=== PATIENT | female | born 1980 | race Caucasian/White ===

== ENCOUNTER 2018-04-07 20:48 | Emergency (ER) | payer SELFPAY ==
--- NOTE | 2018-04-07 18:10 | PC.NURSE ---
received a call from [facility], wednesday 7 weeks with low back pain, abdominal pain with vaginal bleeding [id number], takes vitamins, bhcg 164.6 vs 125/50 hr 69 rr 18 temp 37.6 sat 99%ra. sent for u/s, r/o spontaneous .
[2018-04-07 21:10] VITALS: BP 135/60; PULSE 83; RESP 18; TEMP 37; O2SAT 99
--- NOTE | 2018-04-07 21:24 | ED.PREGNANCY ---
HPI - General Chief complaint: OB/Uterine Contractions Stated complaint: 7 wks , with bleeding and abdominal pain Time Seen by Provider: 04/07/18 21:12 Source: patient Mode of arrival: ambulatory Limitations: no limitations History of Present Illness HPI Narrative: The patient is . Her LMP was 13 Feb 2018. Gale sexually active last night and again this morning. She developed spotting. She has changed 1 pad. She was seen in clinic today, serum HCG was 164. She is here with left upper quadrant abdominal pain. She has minimal lower abdominal pain. She has ongoing spotting. She denies fever or chills. There is no vaginal pain. She denies urinary symptoms. She lives in the [facility] They have no ultrasound capability there. She came here for additional assessment. Patient : Yes Related Data Home Medications Medication Instructions Recorded Confirmed CLOTRIMAZOLE 1% (Clotrimazole) 1 % TOPICAL PRN #15 gm 06/28/12 RIZATRIPTAN BENZOATE (Maxalt Sql Database Administrator) 10 mg PO PRN #0 06/28/12 cyclobenzaprine 10 mg PO PRN #0 06/28/12 DESOXIMETASONE (TOPICORT CREAM) 0.25 TP BIDP #0 08/23/12 acyclovir 400 mg PO QDAY #0 08/23/12 aspirin 1 - 3 tabs PO HSP #0 08/23/12 Previous Rx's Medication Instructions Recorded HC/Neomycin Sulf/Polymyxin B 7.5 ml OT BID #5 ml 08/29/12 (#CORTISPORIN 1%-0.35%-42054 U/ML 10 ML) amoxicillin-pot clavulanate 875 mg PO BID #20 10/20/12 [Augmentin] Review of Systems Review of Systems All systems reviewed & are unremarkable except as noted in HPI and below Constitutional Denies chills, Denies fever(s), Denies lethargy and Denies weakness Gastrointestinal Gastrointestinal: Reports abdominal pain, Denies change in bowel habits, Reports constipation, Denies diarrhea, Denies nausea and Denies vomiting Genitourinary Reports as per HPI, Reports abnormal vaginal bleeding, Denies flank pain, Denies urinary incontinence and Denies urinary urgency Neurologic Denies weakness PMFSH - Past Medical History Medical history: Reports no medical history Surgical history: Reports no surgical history Patient : Yes Family history: Reports no significant family history Exam Initial Vital Signs Initial Vital Signs: Vital Signs Temperature 98.6 F 04/07/18 21:10 Pulse Rate 83 04/07/18 21:10 Respiratory Rate 18 04/07/18 21:10 Blood Pressure 135/60 H 04/07/18 21:10 Pulse Oximetry 99 04/07/18 21:10 Const General: cooperative, healthy appearing, comfortable and well developed Nutritional Appearance: well nourished Orientation: alert, awake, oriented x3 and not confused Neck Thyroid: thyroid normal Resp Effort & Inspection: normal respiratory effort Auscultation: clear to auscultation bilaterally, no rales, no rhonchi and no wheezes Cardio Rate: regular rate Rhythm: regular rhythm Heart Sounds: S1 normal, S2 normal, no click, no gallops, no murmurs and no rubs Pulses: normal peripheral pulses GI Inspection: normal to inspection Palpation: soft Percussion: normal to percussion Auscultation: normal bowel sounds and other Back/Spine/Pelvis Back: No CVA tenderness Skin General: no rashes or lesions noted Neuro General: alert, oriented x3 and no focal motor deficits Extrem General: No no calf tenderness and No edema Course Orders Ordered: ED Orders 04/07/18 21:31 US OB <= 14 weeks fetus Stat 04/07/18 21:45 Urinalysis and Microscopic Stat 04/07/18 22:00 ABO RH Type Stat Complete Blood Count AUTO DIFF Stat HCG Quantitative Stat Vital Signs - 8 hr 04/07/18 21:10 04/07/18 23:10 Temperature 98.6 F Pulse Rate 83 68 Respiratory Rate 18 21 Blood Pressure 135/60 H Blood Pressure [Left Arm] 119/64 Pulse Oximetry 99 100 MDM - OB/Uterine Contractions Lab Data Result diagrams: 04/07/18 22:00 Lab Results 04/07/18 04/07/18 04/07/18 Range/Units 21:45 22:00 22:00 WBC 10.4 (4.5-11.0) X10^3/uL RBC 4.38 (4.0-5.2) X10^6/uL Hgb 13.7 (12.0-16.0) g/dL Hct 40.7 (36-46) % MCV 92.9 (80-100) fL MCH 31.3 (26-34) PG MCHC 33.6 (30-36) % RDW 13.4 (11.6-14.8) % Plt Count 340 (150-400) X10^3/uL Neut % (Auto) 59.8 (50-75) % Lymph % (Auto) 28.9 (25-40) % [place] % (Auto) 8.6 (3-14) % Eos % (Auto) 2.4 (2-4) % Baso % (Auto) 0.3 (0-2) % Neut # (Auto) 6200 H (3452-3315) /uL HCG, Quant mIU/mL Urine Color Yellow Urine Appearance Clear Urine pH 5.5 (4.5-8.0) Ur Specific [place] 1.010 (1.000-1.035) Urine Protein Negative (Negative) Urine Glucose (UA) Negative (Normal) g/dL Urine Ketones Negative (NEGATIVE) Urine Occult Blood 3+ H (Negative) Urine Nitrate Negative (Negative) Urine Bilirubin Negative (NEGATIVE) Urine Urobilinogen 0.2 (0.2) E.U./dL Ur Leukocyte Esterase Negative (NEGATIVE) Urine RBC 0-1/hpf (0-5/HPF) Urine WBC 0-1/hpf (0-5/HPF) Ur Squamous Epith Cells 5-10 /hpf H Urine Bacteria Few (2-10) H (None) Ur Culture Indicated? Cult not indicated Micro UA Comment Not Reportable Blood Type A Positive 04/07/18 Range/Units 22:00 WBC (4.5-11.0) X10^3/uL RBC (4.0-5.2) X10^6/uL Hgb (12.0-16.0) g/dL Hct (36-46) % MCV (80-100) fL MCH (26-34) PG MCHC (30-36) % RDW (11.6-14.8) % Plt Count (150-400) X10^3/uL Neut % (Auto) (50-75) % Lymph % (Auto) (25-40) % [place] % (Auto) (3-14) % Eos % (Auto) (2-4) % Baso % (Auto) (0-2) % Neut # (Auto) (9476-6907) /uL HCG, Quant 182.56 mIU/mL Urine Color Urine Appearance Urine pH (4.5-8.0) Ur Specific [place] (1.000-1.035) Urine Protein (Negative) Urine Glucose (UA) (Normal) g/dL Urine Ketones (NEGATIVE) Urine Occult Blood (Negative) Urine Nitrate (Negative) Urine Bilirubin (NEGATIVE) Urine Urobilinogen (0.2) E.U./dL Ur Leukocyte Esterase (NEGATIVE) Urine RBC (0-5/HPF) Urine WBC (0-5/HPF) Ur Squamous Epith Cells Urine Bacteria (None) Ur Culture Indicated? Micro UA Comment Blood Type MDM Narrative Medical decision making narrative: The patient was referred here seemingly anticipating an ultrasound. The hCG level is too small to detect a . There was concern raised about ectopic . Again the HCG level is too little to consider to taking an ectopic . Based upon her last period she likely has a blighted ovum. However there is a subtle chest that she is very early in . I am going to refer her back to her PCM for retesting next week. Discharge Plan Departure Patient Disposition: Home, Self-Care Clinical Impression: Threatened miscarriage Instructions: DI for Threatened Activity Restrictions/Additional Instructions: The blood test is too low to detect evidence of with an ultrasound. The blood tests should be repeated by your doctor next week. If the test is declining you're going to be having a miscarriage. If the test is increasing your doctor should follow the level out until it reaches approximately 2000, at that level an ultrasound may be useful. Return here for extensive bleeding, or pain. Prescriptions: No Action cyclobenzaprine 10 MG tablet 10 mg PO PRN Qty: 0 RF: 0 CLOTRIMAZOLE 1% (Clotrimazole) 1 % Topical PRN Qty: 15 RF: 0 RIZATRIPTAN BENZOATE ([employer]alt Sql Database Administrator) 10 mg PO PRN Qty: 0 RF: 0 aspirin 325 MG tablet 1 - 3 tabs PO HSP Qty: 0 RF: 0 acyclovir 400 MG tablet 400 mg PO QDAY Qty: 0 RF: 0 DESOXIMETASONE (TOPICORT CREAM) 0.25 TP BIDP Qty: 0 RF: 0 HC/Neomycin Sulf/Polymyxin B (#CORTISPORIN 1%-0.35%-94013 U/ML 10 ML) 7.5 ml OT BID Qty: 5 RF: 1 amoxicillin-pot clavulanate [Augmentin] 875 MG/125 MG tablet 875 mg PO BID Qty: 20 RF: 1
--- NOTE | 2018-04-07 21:44 | PC.NURSE ---
UPT test negative. MD is alerted
[2018-04-07 22:09] LABS: Add Manual Diff / Slide Review NO; Basophils Percent Auto 0.3 % (0-2); Eosinophils Percent Auto 2.4 % (2-4); Hematocrit 40.7 % (36-46); Hemoglobin 13.7 g/dL (12.0-16.0); Lymphocytes Percent Auto 28.9 % (25-40); Mean Corpuscular HGB Conc 33.6 % (30-36); Mean Corpuscular Hemoglobin 31.3 PG (26-34); Mean Corpuscular Volume 92.9 fL (80-100); Monocytes Percent Auto 8.6 % (3-14); Neutrophils Absolute Auto 6200 /uL (3000-5900); Neutrophils Percent Auto 59.8 % (50-75); Platelet Count 340 X10^3/uL (150-400); Red Blood Cell Count 4.38 X10^6/uL (4.0-5.2); Red Cell Distribution Width 13.4 % (11.6-14.8); White Blood Cell Count 10.4 X10^3/uL (4.5-11.0)
[2018-04-07 22:10] LABS: Appearance Urine UA CLEAR; Bilirubin Urine UA NEGATIVE (NEGATIVE); Color Urine UA YELLOW; Glucose Urine UA NEGATIVE (Normal); Ketones Urine UA NEGATIVE (NEGATIVE); Leukocyte Esterase Urine UA NEGATIVE (NEGATIVE); Nitrite Urine UA Negative (Negative); Occult Blood Urine UA 3+ (Negative); Protein Urine UA NEGATIVE (Negative); Urobilinogen Urine UA 0.2 E.U./dL (0.2); pH Urine UA 5.5 (4.5-8.0)
[2018-04-07 22:12] LABS: RBC Urine 0-1/HPF (0-5/HPF); Squamous Epithelial Cell Urine 5-10 /HPF; WBC Urine 0-1/HPF (0-5/HPF)
[2018-04-07 22:13] LABS: Bacteria Urine Few (2-10); Culture Indicated Urine Cult Not Indicated
[2018-04-07 22:35] LABS: HCG Quantitative /Beta subunit 182.56 mIU/mL
[2018-04-07 23:10] VITALS: BP 119/64; PULSE 68; RESP 21; O2SAT 100
--- NOTE | 2018-10-26 23:42 | ED.PREGNANCY ---
HPI - General Chief complaint: OB/Uterine Contractions Stated complaint: 7 wks , with bleeding and abdominal pain Time Seen by Provider: 04/07/18 21:12 Source: patient Mode of arrival: ambulatory Limitations: no limitations Related Data Home Medications Medication Instructions Recorded Confirmed CLOTRIMAZOLE 1% (Clotrimazole) 1 % TOPICAL PRN #15 gm 06/28/12 RIZATRIPTAN BENZOATE ([employer] Marine Scientist) 10 mg PO PRN #0 06/28/12 08/18/18 cyclobenzaprine 10 mg PO PRN #0 06/28/12 DESOXIMETASONE (TOPICORT CREAM) 0.25 TP BIDP #0 08/23/12 acyclovir 400 mg PO QDAY #0 08/23/12 08/18/18 aspirin 1 - 3 tabs PO HSP #0 08/23/12 Previous Rx's Medication Instructions Recorded HC/Neomycin Sulf/Polymyxin B 7.5 ml OT BID #5 ml 08/29/12 (#CORTISPORIN 1%-0.35%-61655 U/ML 10 ML) Allergies Allergy/AdvReac Type Severity Reaction Status Date / Time bee venom protein (honey bee) Allergy Unknown Unverified 08/16/18 14:01 aspirin AdvReac Vomits Unverified 08/16/18 14:01 Review of Systems Constitutional Denies weakness Neurologic Denies weakness PMFSH - Past Medical History Medical history: Reports no medical history Surgical history: Reports no surgical history Family history: Reports no significant family history Exam Initial Vital Signs Initial Vital Signs: Vital Signs Temperature 98.6 F 04/07/18 21:10 Pulse Rate 83 04/07/18 21:10 Respiratory Rate 18 04/07/18 21:10 Blood Pressure 135/60 H 04/07/18 21:10 Pulse Oximetry 99 04/07/18 21:10 Course Course Narrative: The correct patient was signed in and managed under the wrong name, the name found on this chart. Her information has been transitioned to the correct chart. MDM - OB/Uterine Contractions Lab Data Result diagrams: 04/07/18 22:00 Lab Results 04/07/18 04/07/18 04/07/18 Range/Units 21:45 22:00 22:00 WBC 10.4 (4.5-11.0) X10^3/uL RBC 4.38 (4.0-5.2) X10^6/uL Hgb 13.7 (12.0-16.0) g/dL Hct 40.7 (36-46) % MCV 92.9 (80-100) fL MCH 31.3 (26-34) PG MCHC 33.6 (30-36) % RDW 13.4 (11.6-14.8) % Plt Count 340 (150-400) X10^3/uL Neut % (Auto) 59.8 (50-75) % Lymph % (Auto) 28.9 (25-40) % [place] % (Auto) 8.6 (3-14) % Eos % (Auto) 2.4 (2-4) % Baso % (Auto) 0.3 (0-2) % Neut # (Auto) 6200 H (3152-3782) /uL HCG, Quant mIU/mL Urine Color Yellow Urine Appearance Clear Urine pH 5.5 (4.5-8.0) Ur Specific [place] 1.010 (1.000-1.035) Urine Protein Negative (Negative) Urine Glucose (UA) Negative (Normal) g/dL Urine Ketones Negative (NEGATIVE) Urine Occult Blood 3+ H (Negative) Urine Nitrate Negative (Negative) Urine Bilirubin Negative (NEGATIVE) Urine Urobilinogen 0.2 (0.2) E.U./dL Ur Leukocyte Esterase Negative (NEGATIVE) Urine RBC 0-1/hpf (0-5/HPF) Urine WBC 0-1/hpf (0-5/HPF) Ur Squamous Epith Cells 5-10 /hpf H Urine Bacteria Few (2-10) H (None) Ur Culture Indicated? Cult not indicated Micro UA Comment Not Reportable Blood Type A Positive 04/07/18 Range/Units 22:00 WBC (4.5-11.0) X10^3/uL RBC (4.0-5.2) X10^6/uL Hgb (12.0-16.0) g/dL Hct (36-46) % MCV (80-100) fL MCH (26-34) PG MCHC (30-36) % RDW (11.6-14.8) % Plt Count (150-400) X10^3/uL Neut % (Auto) (50-75) % Lymph % (Auto) (25-40) % [place] % (Auto) (3-14) % Eos % (Auto) (2-4) % Baso % (Auto) (0-2) % Neut # (Auto) (3766-4860) /uL HCG, Quant 182.56 mIU/mL Urine Color Urine Appearance Urine pH (4.5-8.0) Ur Specific [place] (1.000-1.035) Urine Protein (Negative) Urine Glucose (UA) (Normal) g/dL Urine Ketones (NEGATIVE) Urine Occult Blood (Negative) Urine Nitrate (Negative) Urine Bilirubin (NEGATIVE) Urine Urobilinogen (0.2) E.U./dL Ur Leukocyte Esterase (NEGATIVE) Urine RBC (0-5/HPF) Urine WBC (0-5/HPF) Ur Squamous Epith Cells Urine Bacteria (None) Ur Culture Indicated? Micro UA Comment Blood Type Point of Care Testing Test Results Negative Urine Dip Bedside Urine Glucose Negative Bedside Urine Bilirubin - Negative Bedside Urine Ketone - Negative Urine Specific [place] 1.015 Bedside Urine Occult Blood +++ Bedside Urine pH 6.0 Bedside Urine Protein - Negative Bedside Urine Urobilinogen - Negative Bedside Urine Nitrite - Negative Bedside Urine Leukocytes - Negative Esterase Discharge Plan Departure Patient Disposition: Home Clinical Impression: Administrative encounter Discharge Date/Time: 04/07/18 23:46 Interventions: ED Discharge Assessment Last Done: 04/07/18 23:46 Instructions: DI for Threatened Activity Restrictions/Additional Instructions: The blood test is too low to detect evidence of with an ultrasound. The blood tests should be repeated by your doctor next week. If the test is declining you're going to be having a miscarriage. If the test is increasing your doctor should follow the level out until it reaches approximately 2000, at that level an ultrasound may be useful. Return here for extensive bleeding, or pain. Prescriptions: No Action cyclobenzaprine 10 MG tablet 10 mg PO PRN Qty: 0 RF: 0 CLOTRIMAZOLE 1% (Clotrimazole) 1 % Topical PRN Qty: 15 RF: 0 RIZATRIPTAN BENZOATE ([employer]alt Marine Scientist) 10 mg PO PRN Qty: 0 RF: 0 aspirin 325 MG tablet 1 - 3 tabs PO HSP Qty: 0 RF: 0 acyclovir 400 MG tablet 400 mg PO QDAY Qty: 0 RF: 0 DESOXIMETASONE (TOPICORT CREAM) 0.25 TP BIDP Qty: 0 RF: 0 HC/Neomycin Sulf/Polymyxin B (#CORTISPORIN 1%-0.35%-99527 U/ML 10 ML) 7.5 ml OT BID Qty: 5 RF: 1
--- NOTE | 2018-10-31 00:48 | ED_ITS ---
HPI - General Chief complaint: OB/Uterine Contractions Stated complaint: 7 wks , with bleeding and abdominal pain Time Seen by Provider: 04/07/18 21:12 Source: patient Mode of arrival: ambulatory Limitations: no limitations Related Data Home Medications Medication Instructions Recorded Confirmed CLOTRIMAZOLE 1% (Clotrimazole) 1 % TOPICAL PRN #15 gm 06/28/12 RIZATRIPTAN BENZOATE (Maxalt Shale Miner) 10 mg PO PRN #0 06/28/12 08/18/18 cyclobenzaprine 10 mg PO PRN #0 06/28/12 DESOXIMETASONE (TOPICORT CREAM) 0.25 TP BIDP #0 08/23/12 acyclovir 400 mg PO QDAY #0 08/23/12 08/18/18 aspirin 1 - 3 tabs PO HSP #0 08/23/12 Previous Rx's Medication Instructions Recorded HC/Neomycin Sulf/Polymyxin B 7.5 ml OT BID #5 ml 08/29/12 (#CORTISPORIN 1%-0.35%-38585 U/ML 10 ML) Allergies Allergy/AdvReac Type Severity Reaction Status Date / Time bee venom protein (honey bee) Allergy Unknown Unverified 08/16/18 14:01 aspirin AdvReac Vomits Unverified 08/16/18 14:01 Review of Systems Constitutional Denies weakness Neurologic Denies weakness PMFSH - Past Medical History Medical history: Reports no medical history Surgical history: Reports no surgical history Family history: Reports no significant family history Exam Initial Vital Signs Initial Vital Signs: Vital Signs Temperature 98.6 F 04/07/18 21:10 Pulse Rate 83 04/07/18 21:10 Respiratory Rate 18 04/07/18 21:10 Blood Pressure 135/60 H 04/07/18 21:10 Pulse Oximetry 99 04/07/18 21:10 Course Course Narrative: The correct patient was signed in and managed under the wrong name, the name found on this chart. Her information has been transitioned to the correct chart. MDM - OB/Uterine Contractions Lab Data Result diagrams: 04/07/18 22:00 Lab Results 04/07/18 04/07/18 04/07/18 Range/Units 21:45 22:00 22:00 WBC 10.4 (4.5-11.0) X10^3/uL RBC 4.38 (4.0-5.2) X10^6/uL Hgb 13.7 (12.0-16.0) g/dL Hct 40.7 (36-46) % MCV 92.9 (80-100) fL MCH 31.3 (26-34) PG MCHC 33.6 (30-36) % RDW 13.4 (11.6-14.8) % Plt Count 340 (150-400) X10^3/uL Neut % (Auto) 59.8 (50-75) % Lymph % (Auto) 28.9 (25-40) % [place] % (Auto) 8.6 (3-14) % Eos % (Auto) 2.4 (2-4) % Baso % (Auto) 0.3 (0-2) % Neut # (Auto) 6200 H (2881-8954) /uL HCG, Quant mIU/mL Urine Color Yellow Urine Appearance Clear Urine pH 5.5 (4.5-8.0) Ur Specific [place] 1.010 (1.000-1.035) Urine Protein Negative (Negative) Urine Glucose (UA) Negative (Normal) g/dL Urine Ketones Negative (NEGATIVE) Urine Occult Blood 3+ H (Negative) Urine Nitrate Negative (Negative) Urine Bilirubin Negative (NEGATIVE) Urine Urobilinogen 0.2 (0.2) E.U./dL Ur Leukocyte Esterase Negative (NEGATIVE) Urine RBC 0-1/hpf (0-5/HPF) Urine WBC 0-1/hpf (0-5/HPF) Ur Squamous Epith Cells 5-10 /hpf H Urine Bacteria Few (2-10) H (None) Ur Culture Indicated? Cult not indicated Micro UA Comment Not Reportable Blood Type A Positive 04/07/18 Range/Units 22:00 WBC (4.5-11.0) X10^3/uL RBC (4.0-5.2) X10^6/uL Hgb (12.0-16.0) g/dL Hct (36-46) % MCV (80-100) fL MCH (26-34) PG MCHC (30-36) % RDW (11.6-14.8) % Plt Count (150-400) X10^3/uL Neut % (Auto) (50-75) % Lymph % (Auto) (25-40) % [place] % (Auto) (3-14) % Eos % (Auto) (2-4) % Baso % (Auto) (0-2) % Neut # (Auto) (2999-8913) /uL HCG, Quant 182.56 mIU/mL Urine Color Urine Appearance Urine pH (4.5-8.0) Ur Specific [place] (1.000-1.035) Urine Protein (Negative) Urine Glucose (UA) (Normal) g/dL Urine Ketones (NEGATIVE) Urine Occult Blood (Negative) Urine Nitrate (Negative) Urine Bilirubin (NEGATIVE) Urine Urobilinogen (0.2) E.U./dL Ur Leukocyte Esterase (NEGATIVE) Urine RBC (0-5/HPF) Urine WBC (0-5/HPF) Ur Squamous Epith Cells Urine Bacteria (None) Ur Culture Indicated? Micro UA Comment Blood Type Point of Care Testing Test Results Negative Urine Dip Bedside Urine Glucose Negative Bedside Urine Bilirubin - Negative Bedside Urine Ketone - Negative Urine Specific [place] 1.015 Bedside Urine Occult Blood +++ Bedside Urine pH 6.0 Bedside Urine Protein - Negative Bedside Urine Urobilinogen - Negative Bedside Urine Nitrite - Negative Bedside Urine Leukocytes - Negative Esterase Discharge Plan Departure Patient Disposition: Home Clinical Impression: Administrative encounter Discharge Date/Time: 04/07/18 23:46 Interventions: ED Discharge Assessment Last Done: 04/07/18 23:46 Instructions: DI for Threatened Activity Restrictions/Additional Instructions: The blood test is too low to detect evidence of with an ultrasound. The blood tests should be repeated by your doctor next week. If the test is declining you're going to be having a miscarriage. If the test is increasing your doctor should follow the level out until it reaches approximately 2000, at that level an ultrasound may be useful. Return here for extensive bleeding, or pain. Prescriptions: No Action cyclobenzaprine 10 MG tablet 10 mg PO PRN Qty: 0 RF: 0 CLOTRIMAZOLE 1% (Clotrimazole) 1 % Topical PRN Qty: 15 RF: 0 RIZATRIPTAN BENZOATE (Maxalt Shale Miner) 10 mg PO PRN Qty: 0 RF: 0 aspirin 325 MG tablet 1 - 3 tabs PO HSP Qty: 0 RF: 0 acyclovir 400 MG tablet 400 mg PO QDAY Qty: 0 RF: 0 DESOXIMETASONE (TOPICORT CREAM) 0.25 TP BIDP Qty: 0 RF: 0 HC/Neomycin Sulf/Polymyxin B (#CORTISPORIN 1%-0.35%-65032 U/ML 10 ML) 7.5 ml OT BID Qty: 5 RF: 1
== END 2018-04-07 23:46 | disposition home or self-care (01) ==
PROVIDERS: Emergency Provider Emergency Medicine; PCP Obstetrics & Gynecology
DX: O20.0 Threatened abortion (principal); Z3A.01 Less than 8 weeks gestation of pregnancy
CPT/HCPCS: 36415; 81001; 81003; 81025; 84702; 85025; 86900; 86901; 99282; 99284